=== PATIENT | male | born 1955 | race Caucasian/White ===

== ENCOUNTER 2017-09-11 16:00 | Emergency (ER) | payer OTHER ==
[~2017-09-11] VITALS: Ht 180.3 cm; Wt 119.7 kg
[2017-09-11] MEDS ORDERED: FLEXERIL10 MG PO (19:16)
[2017-09-11 19:32] VITALS: BP 124/78
== END 2017-09-11 19:32 | disposition home or self-care (01) ==
LOC: TRA 16:00 → EME 16:00 → TRA 19:32
DX: S39.012A Strain of muscle, fascia and tendon of lower back, initial encounter (principal); S16.1XXA Strain of muscle, fascia and tendon at neck level, initial encounter; M79.602 Pain in left arm; M25.511 Pain in right shoulder; M25.512 Pain in left shoulder; V43.52XA Car driver injured in collision with other type car in traffic accident, initial encounter; Y92.410 Unspecified street and highway as the place of occurrence of the external cause; Z98.1 Arthrodesis status; Z87.891 Personal history of nicotine dependence
CPT/HCPCS: 72125; 72131; 99281; 99284